=== PATIENT | male | born 1945 | race Caucasian/White ===

== ENCOUNTER 2017-10-28 09:04 | Emergency (ER) | payer MEDICARE, MEDICAID ==
[~2017-10-28] VITALS: Ht 180.3 cm; Wt 89.6 kg
[~2017-10-28 09:04] MED LIST: HYDR12.58 PO; LISI-167 PO; MORP60TA34 PO; OXYC-302 PO; OXYC10TA47 PO
[2017-10-28 09:05] VITALS: BP 138/78
[2017-10-28] MEDS ORDERED: OXYcodone/APAP 5/325MG TABLET PO ONE (09:30)
[2017-10-28] MEDS ORDERED: OXYcodone/APAP 5/325MG TABLET ONE (09:59)
== END 2017-10-28 10:09 | disposition home or self-care (01) ==
LOC: ED 10:00
DX: M25.512 Pain in left shoulder (principal); G89.11 Acute pain due to trauma
CPT/HCPCS: 93005; 99284

== ENCOUNTER 2018-02-10 07:26 | Emergency (ER) | payer MEDICARE, MEDICAID ==
[~2018-02-10] VITALS: Ht 180.3 cm; Wt 90.3 kg
[2018-02-10 07:30] VITALS: BP 150/79
[2018-02-10] MEDS ORDERED: IBUPROFEN 200 MG TABLET PO ONE (08:00)
[2018-02-10] MEDS ORDERED: IBUPROFEN 200 MG TABLET ONE (08:03)
== END 2018-02-10 08:43 | disposition home or self-care (01) ==
LOC: ED 08:10
DX: M79.672 Pain in left foot (principal); M79.671 Pain in right foot; Z59.0 Homelessness
CPT/HCPCS: 99283

== ENCOUNTER 2018-08-04 20:16 | Emergency (ER) | payer MEDICARE, MEDICAID ==
[~2018-08-04] VITALS: Ht 180.3 cm; Wt 87.4 kg
[2018-08-04 20:17] VITALS: BP 138/95
[2018-08-04] MEDS ORDERED: HYDROcodone/APAP 5/325 TABLET ONE (20:55)
[2018-08-04] MEDS ORDERED: HYDROcodone/APAP 5/325 TABLET PO ONE (21:00)
== END 2018-08-04 21:30 | disposition home or self-care (01) ==
LOC: ED 21:02
DX: K02.9 Dental caries, unspecified (principal); I10 Essential (primary) hypertension
CPT/HCPCS: 99283

== ENCOUNTER 2018-08-31 13:00 | Emergency (ER) | payer MEDICARE, MEDICAID ==
[~2018-08-31] VITALS: Ht 172.7 cm; Wt 85.2 kg
[2018-08-31 13:20] VITALS: BP 123/76
[2018-08-31] MEDS ORDERED: LIDOCAINE 2%, 20ML INFIL ONE (14:30)
[2018-08-31] MEDS ORDERED: LIDOCAINE-MPF 1%, 2ML ONE (14:34)
== END 2018-08-31 15:03 | disposition home or self-care (01) ==
LOC: ED 14:50
DX: S63.591A Other specified sprain of right wrist, initial encounter (principal); S63.653A Sprain of metacarpophalangeal joint of left middle finger, initial encounter; S63.633A Sprain of interphalangeal joint of left middle finger, initial encounter; I10 Essential (primary) hypertension; X58.XXXA Exposure to other specified factors, initial encounter; Y93.89 Activity, other specified; Y92.410 Unspecified street and highway as the place of occurrence of the external cause; Y99.8 Other external cause status
CPT/HCPCS: 29130; 29260; 99284

== ENCOUNTER 2018-10-23 23:17 | Emergency (ER) | payer MEDICARE, MEDICAID ==
[~2018-10-23] VITALS: Ht 177.8 cm; Wt 84.0 kg
[~2018-10-23 23:17] MED LIST changes: -HYDR12.58 PO; +HYDROCHLOROTH12.5 MG PO
[2018-10-23] MEDS ORDERED: LORazepam 2 MG/ML, 1ML ONE (23:48)
[2018-10-24] MEDS ORDERED: LORazepam 2 MG/ML, 1ML IVPush ONE
[2018-10-24 00:03] LABS: ALANINE AMINOTRANSFERASE 254 U/L (12-78); ALBUMIN 3.8 g/dL (3.4-5.0); ANION GAP 15 mmol/L (5-15); CALCIUM 9.1 mg/dL (8.5-10.1); CHLORIDE 110 mmol/L (98-107); CREATININE 1.41 mg/dL (0.7-1.3)
[2018-10-24 00:05] LABS: ALKALINE PHOSPHATASE 125 U/L (45-117); BILIRUBIN,TOTAL 1.1 mg/dL (0.2-1.0); TOTAL PROTEIN 8.5 g/dL (6.4-8.2)
[2018-10-24 00:19] LABS: BASOPHILS % (AUTO) 0 % (0-1); EOSINOPHILS % (AUTO) 0 % (1-7); LYMPHOCYTES # (AUTO) 0.97 x10^3/uL (1-3.4); LYMPHOCYTES % (AUTO) 7 % (22-44); MD NO; MEAN CORPUSCULAR HEMOGLOBIN 32.3 pg (27.5-34.5); MEAN CORPUSCULAR HGB CONC 34.4 g/dL (33.2-36.2); MEAN PLATELET VOLUME 8.8 fL (7.4-10.4); MONOCYTES # (AUTO) 0.58 x10^3/uL (0.2-0.8); MONOCYTES % (AUTO) 4 % (2-9); NEUTROPHILS # (AUTO) 11.86 x10^3/uL (1.8-6.8); NEUTROPHILS % (AUTO) 88 % (42-75); PLATELET COUNT 171 x10^3/uL (130-400); RED BLOOD COUNT 4.97 x10^6/uL (4.38-5.82); RED CELL DISTRIBUTION WIDTH 13.5 % (9.4-14.8)
[2018-10-24 03:18] LABS: AMPHETAMINE SCREEN, URINE Positive (Negative); BARBITURATE SCREEN, URINE Negative (Negative); BENZODIAZEPINE SCREEN, URINE Negative (Negative); CANNABINOID SCREEN, URINE Negative (Negative); COCAINE SCREEN, URINE Negative (Negative); METHADONE SCREEN, URINE Negative (Negative); OPIATE SCREEN, URINE Negative (Negative)
[2018-10-24 03:38] VITALS: BP 152/89
== END 2018-10-24 03:43 | disposition home or self-care (01) ==
LOC: ED 23:24
DX: R00.0 Tachycardia, unspecified (principal); F15.129 Other stimulant abuse with intoxication, unspecified; I10 Essential (primary) hypertension; Z88.8 Allergy status to other drugs, medicaments and biological substances
CPT/HCPCS: 36415; 80053; 80307; 85025; 93005; 96374; 99284; J2060